=== PATIENT | male | born 1980 | race Caucasian/White ===

== ENCOUNTER 2016-11-16 14:11 | Emergency (ER) | payer OTHER ==
[2016-11-16 14:49] VITALS: BP 116/68
--- NOTE | 2016-11-16 15:29 | UC ---
Upper Extremity HPI - HPI Summary HPI Summary: 36 YEAR OLD MALE PRESENTS WITH COMPLAINS OF BILATERAL LITTLE FINGER SWELLING/ PARONYCHIA. PATIENT HAS ELECTED TO TRY ANTIBIOTICS FIRST. - History of Current Complaint Chief Complaint: UCUpperExtremity Stated Complaint: FINGER COMPLAINT Time Seen by Provider: 11/16/16 15:26 Hx Obtained From: Patient Onset/Duration: Sudden Onset, Lasting Hours Severity Currently: Moderate Pain Scale Used: 0-10 Numeric - 5 Character: Sharp, Throbbing Aggravating Factor(s): Movement Alleviating Factor(s): Nothing Associated Signs And Symptoms: Positive: Swelling, Redness - Allergies/Home Medications Allergies/Adverse Reactions: Allergies Allergy/AdvReac Type Severity Reaction Status Date / Time No Known Allergies Allergy Verified 11/16/16 14:50 Home Medications: Home Medications FLUoxetine CAP* [Prozac CAP*] 11/16/16 [History] Lisdexamfetamine Dimesylate [Vyvanse] 11/16/16 [History Confirmed 11/16/16] PMH/Surg Hx/FS Hx/Imm Hx Previously Healthy: Yes - Surgical History Surgical History: Yes Surgery Procedure, Year, and Place: tonsilectomy. right ankle - Social History Alcohol Use: None Substance Use Type: None Smoking Status (MU): Former Smoker Have You Smoked in the Last Year: No Review of Systems Constitutional: Negative Skin: Other - BILATERAL LITTLE FINGER REDNESS/SWELLING Eyes: Negative ENT: Negative Respiratory: Negative Cardiovascular: Negative Gastrointestinal: Negative Genitourinary: Negative Motor: Negative Neurovascular: Negative Musculoskeletal: Negative Neurological: Negative Psychological: Negative All Other Systems Reviewed And Are Negative: Yes Physical Exam Triage Information Reviewed: Yes Vital Signs: Initial Vital Signs Temp 37.2 C 11/16/16 14:45 Pulse 90 11/16/16 14:45 Resp 18 11/16/16 14:45 BP 116/68 11/16/16 14:45 Pulse Ox 100 11/16/16 14:45 Eye Exam: Normal ENT Exam: Normal Dental Exam: Normal Neck exam: Normal Neck: Positive: 1 Respiratory Exam: Normal Cardiovascular Exam: Normal Abdominal Exam: Normal Musculoskeletal Exam: Normal Neurological Exam: Normal Psychological Exam: Normal Skin: Positive: Other - BILATERAL LITTLE FINGER ERYTHEMA/SWELLING Upper Extremity Course/Dx - Differential Dx/Diagnosis Provider Diagnoses: BILATERAL LITTLE FINGER PARONYCHIA Discharge - Discharge Plan Condition: Stable Disposition: HOME Prescriptions: Cephalexin CAP* [Keflex CAP*] 500 mg PO TID #30 cap Patient Education Materials: Paronychia (ED) Forms: *Work Release Referrals: Ralf Livingston MD [Primary Care Provider] - If Needed Additional Instructions: WILL TRY ORAL ANTIBIOTICS FIRST PER PATIENT
== END 2016-11-16 16:02 | disposition home or self-care (01) ==
LOC: UCEAST 14:11
DX: L03.012 Cellulitis of left finger (principal); L03.011 Cellulitis of right finger; Z87.891 Personal history of nicotine dependence
CPT/HCPCS: 99212; G0463

== ENCOUNTER 2019-06-17 18:57 | Emergency (ER) | payer OTHER ==
--- NOTE | 2019-06-17 20:09 | UC ---
Throat Pain/Nasal Juan Alberto HPI - HPI Summary HPI Summary: 38 y/o male presents to the urgent care c/o sore throat for about ten days. Pt reports sore throat is worse in the morning. He states today is 2/10. He has not taken anything to alleviate symptoms. His son was just Dx today w/ strep. He has had Mononucleosis in the past and would like to be tested if strep is negative. He feels mild body aches. Pt denies fever, SOB, chest pain, recent travel, abdominal pain, N/V/d. He also denies contact w/ any Pt who has been Dx or tested for COVID19. - History of Current Complaint Chief Complaint: UCRespiratory Stated Complaint: SORE THROAT Time Seen by Provider: 06/17/19 20:02 Hx Obtained From: Patient Onset/Duration: Gradual Onset, Lasting Days - 10 days of sore throat on and off , Still Present, Worse Since - yesterday Severity: Mild Pain Intensity: 2 - sore throat Pain Scale Used: 0-10 Numeric Cough: None - Epiglottits Risk Factors Epiglottis Risk Factors: Negative - Allergies/Home Medications Allergies/Adverse Reactions: Allergies Allergy/AdvReac Type Severity Reaction Status Date / Time MS Latex [Latex] Allergy Rash Verified 03/04/17 15:23 MS Nickel [Nickel] Allergy Rash Verified 03/04/17 15:23 Home Medications: Home Medications FLUoxetine CAP* [PROzac CAP*] 60 mg PO DAILY 02/27/17 [History Confirmed ] Lisdexamfetamine(NF) [Vyvanse(NF)] 20 mg PO DAILY 02/27/17 [History Confirmed ] buPROPion TAB* [Wellbutrin TAB*] 200 mg 06/17/19 [History] PMH/Surg Hx/FS Hx/Imm Hx Previously Healthy: Yes Cardiovascular History: Atrial Fibrillation - Surgical History Surgical History: Yes Surgery Procedure, Year, and Place: tonsilectomy. right ankle - Family History Known Family History: Positive: Hypertension - Social History Occupation: Employed Full-time Lives: With Family Alcohol Use: None Substance Use Type: None Smoking Status (MU): Former Smoker Have You Smoked in the Last Year: No Review of Systems All Other Systems Reviewed And Are Negative: Yes Constitutional: Positive: Negative Skin: Positive: Negative Eyes: Positive: Negative ENT: Positive: Sore Throat Respiratory: Positive: Negative Cardiovascular: Positive: Negative Gastrointestinal: Positive: Negative Genitourinary: Positive: Negative Motor: Positive: Negative Neurovascular: Positive: Negative Musculoskeletal: Positive: Negative Neurological/Mental Status: Positive: Negative Psychological: Positive: Negative Is Patient Immunocompromised?: No Physical Exam - Summary Physical Exam Summary: VITAL SIGNS: Reviewed. GENERAL: Patient is a well developed and nourished male who is sitting comfortably in the examining table. Patient is not in any acute respiratory distress. HEAD AND FACE: No signs of trauma. No ecchymosis, hematomas or skull depressions. No sinus tenderness. EYES: PERRLA, EOMI x 2, No injected conjunctiva, no nystagmus. No photophobia. EARS: Hearing grossly intact. Ear canals and tympanic membranes are within normal limits. MOUTH: Positive pharynx with erythema, no exudates, palatal petechiae. Mild B/ L tonsillar enlargement with no exudate. Uvula in midline. NECK: Supple, trachea is midline, Positive anterior cervical lymphadenopathy, no JVD, no carotid bruit, no c-spine tenderness, neck with full ROM. No meningeal signs, no Kernig's or brudzinskis signs. CHEST: Symmetric, no tenderness at palpation LUNGS: Clear to auscultation bilaterally. No wheezing or crackles. CVS: Regular rate and rhythm, S1 and S2 present, no murmurs or gallops appreciated. ABDOMEN: Soft, non-tender. No signs of distention. No rebound no guarding, and no masses palpated. Bowel sounds are normal. EXTREMITIES: FROM in all major joints, no edema, no cyanosis or clubbing. NEURO: Alert and oriented x 3. No acute neurological deficits. Speech is normal and follows commands. SKIN: Dry and warm Triage Information Reviewed: Yes Throat Pain/Nasal Course/Dx - Course Course Of Treatment: 38 y/o male presents to the urgent care c/o sore throat for about ten days. Pt reports sore throat is worse in the morning. He states today is 2/10. He has not taken anything to alleviate symptoms. His son was just Dx today w/ strep. He has had Mononucleosis in the past and would like to be tested if strep is negative. He feels mild body aches. Pt denies fever, SOB, chest pain, recent travel, abdominal pain, N/V/d. He also denies contact w/ any Pt who has been Dx or tested for COVID19. Hx obtained. Pt is hemodynamically stable, A&OX3, VS: WNL. Pt w/ pharyngitis on examination. Rapid strep ordered, result: negative. Viral pharyngitis.Pt Rx ibuprofen PO to alleviate symptoms of pain and swelling. Advised on hand washing to avoid spreading. Pt advised to rest, eat well and avoid strenuous exercise. If symptoms do not improve or worsen advised to return to the urgent care or f/u with her PCP for further evaluation and treatment. Pt understood and agreed w/ plan of care. - Differential Dx/Diagnosis Differential Diagnosis/HQI/PQRI: Influenza, Laryngitis, Mononucleosis, Pharyngitis, Sinusitis, Tonsillitis, URI Provider Diagnosis: Acute pharyngitis Discharge ED - Sign-Out/Discharge Documenting (check all that apply): Patient Departure - D/c home All imaging exams completed and their final reports reviewed: No Studies - Discharge Plan Condition: Stable Disposition: HOME Patient Education Materials: Pharyngitis (ED) Referrals: Beulah Hernández MD [Primary Care Provider] - 3 Days Additional Instructions: 1-Rapid strep: negative, Rapid influenza A&B: negative. Monospot and CBC ordered as your request. You will be notified of any abnormality for further management. 2-Please take ibuprofen PO q6-8hrs prn as instructed after meals to alleviate pain and swelling. Increase fluid intake, eat well, rest and avoid strenuous exercise 3-If symptoms do not improve or worsen please return to the urgent care or f/u with your PCP in 3 days for further evaluation and treatment. - Billing Disposition and Condition Condition: STABLE Disposition: Home
[2019-06-17 20:19] LABS: Influenza A Molecular Negative (Negative); Influenza B Molecular Negative (Negative)
[2019-06-17 20:32] VITALS: BP 130/72
[2019-06-18 10:28] LABS: Hematocrit 46 % (42-52); Hemoglobin 15.9 g/dL (14.0-18.0); Mean Corpuscular HGB Conc 34 g/dL (31-36); Mean Corpuscular Hemoglobin 29 pg (27-31); Mean Corpuscular Volume 84 fL (80-94); Mean Platelet Volume 8.1 fL (7.4-10.4); Platelet Count 367 10^3/uL (150-450); Red Blood Count 5.48 10^6 /uL (4.18-5.48); Red Cell Distribution Width 13 % (10-15); White Blood Count 11.9 10^3/uL (3.5-10.8)
[2019-06-18 11:00] LABS: ABS Basophils 0.1 10^3/ul (0-0.2); ABS Eosinophils 0.2 10^3/ul (0-0.6); ABS Lymphocytes 2.3 10^3/ul (1.0-4.8); ABS Monocytes 0.7 10^3/ul (0-0.8); ABS Neutrophils 8.6 10^3/ul (1.5-7.7); Lymphocyte % 19.6 %; Nucleated Red Blood Cells % 0.1
[2019-06-20 12:17] LABS: EBV Capsid Ag IgG Ab Positive (Negative); EBV Capsid Ag IgM Ab Negative (Negative); Epstein-Barr Nuclear Antigen Negative (Negative)
--- NOTE | 2019-06-20 16:16 | UC ---
- Progress Note Progress Note: EBV results from June 17, 2019 comes back with a positive EBV IgG. [place] screen was negative. EBV IgM and nuclear antigen were both negative. These results indicate an infection in the past. When the infection was is not easy to determine and it could have been a recent infection. Nursing to call patient inform the patient of the results. Patient should get reevaluated if not improved or worse. Course/Dx - Diagnoses Provider Diagnoses: Acute pharyngitis Discharge ED - Sign-Out/Discharge Documenting (check all that apply): Patient Departure All imaging exams completed and their final reports reviewed: No Studies - Discharge Plan Condition: Stable Disposition: HOME Patient Education Materials: Pharyngitis (ED) Referrals: Beulah Hernández MD [Primary Care Provider] - 3 Days Additional Instructions: 1-Rapid strep: negative, Rapid influenza A&B: negative. Monospot and CBC ordered as your request. You will be notified of any abnormality for further management. 2-Please take ibuprofen PO q6-8hrs prn as instructed after meals to alleviate pain and swelling. Increase fluid intake, eat well, rest and avoid strenuous exercise 3-If symptoms do not improve or worsen please return to the urgent care or f/u with your PCP in 3 days for further evaluation and treatment. - Billing Disposition and Condition Condition: STABLE Disposition: Home
== END 2019-06-17 21:10 | disposition home or self-care (01) ==
LOC: UCEAST 18:57
DX: J02.9 Acute pharyngitis, unspecified (principal); M79.10 Myalgia, unspecified site; Z91.040 Latex allergy status; Z91.09 Other allergy status, other than to drugs and biological substances; Z87.891 Personal history of nicotine dependence
CPT/HCPCS: 36415; 85025; 86308; 86664; 86665; 87651; 99211; G0463

== ENCOUNTER 2024-01-06 15:53 | Inpatient (IN) ==
[2024-01-06 18:09] LABS: Urine Appearance Clear; Urine Bilirubin Negative (Negative); Urine Blood Negative (Negative); Urine Color Colorless; Urine Glucose Negative (Negative); Urine Ketones Negative (Negative); Urine Nitrite Negative (Negative); Urine Protein Negative (Negative); Urine Specific Gravity 1.009 (1.002-1.030); Urine Urobilinogen Negative (Negative)
[2024-01-06 18:31] LABS: Urine Bacteria Absent /HPF (Absent); Urine Red Blood Cell Trace(0-2/hpf) /HPF (0-Trace); Urine White Blood Cell Trace(0-5/hpf) /HPF (0-Trace)
[2024-01-06 18:35] LABS: Urine Benzodiazepine Screen None Detected (None Detect); Urine Cannabinoids Screen Presumptive Positive (None Detect); Urine Opiates Screen None Detected (None Detect)
[2024-01-06 19:47] LABS: ABS Basophils 0.1 10^3/uL (0.0-0.1); ABS Eosinophils 0.2 10^3/uL (0.0-0.5); ABS Lymphocytes 2.6 10^3/uL (1.0-4.8); ABS Monocytes 0.8 10^3/uL (0.0-1.1); ABS Neutrophils 8.1 10^3/uL (1.5-7.6); Hematocrit 46.1 % (38-53); Hemoglobin 15.8 g/dL (13.2-16.3); Lymphocyte % 22.1 %; Mean Corpuscular Hgb Conc 34.3 g/dL (31-36); Mean Corpuscular Volume 84.7 fL (80-97); Mean Platelet Volume 8.1 fL (7.5-11.2); Platelet Count 346 10^3/uL (150-450); Red Blood Count 5.44 10^6/uL (4.06-5.63); White Blood Count 11.9 10^3/uL (3.6-10.2)
[2024-01-06 20:49] LABS: ALT 36 U/L (7-52); AST 24 U/L (13-39); Acetaminophen < 15 mcg/mL; Albumin 4.5 g/dL (3.2-5.2); Albumin/Globulin Ratio 1.7 (1-3); Alcohol, S < 13 mg/dL (<13); Alkaline Phosphatase 59 U/L (35-149); Anion Gap 9 mmol/L (2-16); Blood Urea Nitrogen 14 mg/dL (6-24); CO2 Carbon Dioxide 27 mmol/L (22-32); Calcium 9.8 mg/dL (8.6-10.3); Chloride 102 mmol/L (101-111); Creatinine, Serum 0.89 mg/dL (0.67-1.17); Globulin 2.6 g/dL (2-4); Glucose 96 mg/dL (70-100); Potassium 4.1 mmol/L (3.5-5.0); Salicylate < 2.50 mg/dL (<30); Sodium 138 mmol/L (135-145); Total Bilirubin 0.5 mg/dL (0.2-1.0); Total Protein 7.1 g/dL (6.4-8.9); eGFR CKD-EPI 109.7 (>60)
[2024-01-06 21:18] LABS: TSH Ultra Thyroid Stim Horm 2.97 mcIU/mL (0.34-5.60)
[2024-01-06] MEDS ORDERED: Al Hydrox/Mg Hydrox/Simet LIQ 30 ML UDC PO PRN (22:57)
[2024-01-07 06:53] LABS: HDL Cholesterol 52.4 mg/dL
[2024-01-07] MEDS: Vitamin THERAPEUTIC TAB PO SCH (09:33)
[2024-01-07] MEDS ORDERED: Al Hydrox/Mg Hydrox/Simet LIQ 30 ML UDC PO PRN (14:02)
[2024-01-07] MEDS: OLANZapine 10 mg TAB*ODT PO ONE (16:46)
[2024-01-07] MEDS: Haloperidol 5 mg/ml SDV IV/IM 5 MG/ML AMP IV SLOW PU ONE (16:46)
[2024-01-08 08:38] LABS: HDL Cholesterol 34.9 mg/dL
[2024-01-08] MEDS: risperiDONE-M 1 mg Oradis TAB PO SCH (21:25)
[2024-01-20 08:56] VITALS: BP 123/88
== END 2024-01-20 11:30 | disposition home or self-care (01) | DRG 885 ==
LOC: ED 15:53 → EDHOLD 22:57 → BSU 01-07 14:10 → EDHOLD 01-07 14:10 → BSU 01-07 14:12
PROVIDERS: ADMIT Psychiatry & Neurology Psychiatry; ATTEND Psychiatry & Neurology Psychiatry